=== PATIENT | male | born 1970 | race Caucasian/White ===

== ENCOUNTER 2022-12-21 15:55 | Emergency (ER) | payer OTHER ==
[2022-12-21 16:00] VITALS: BP 140/98; PULSE 106; RESP 20; TEMP 98; BMI 36.9
[2022-12-21] MEDS ORDERED: DIPHTH,PERTUSS(ACELL),TET 0.5 ML DISP.SYRIN IM ONE ×2 (19:29→19:40)
== END 2022-12-21 20:17 | disposition home or self-care (01) ==
LOC: JERFT 15:55
PROC: 0HQ1XZZ Repair Face Skin, External Approach (ICD-10-PCS; principal; 2022-12-21)
PROC: 3E0234Z Introduction of Serum, Toxoid and Vaccine into Muscle, Percutaneous Approach (ICD-10-PCS; 2022-12-21)
DX: S01.81XA Laceration without foreign body of other part of head, initial encounter (principal); W22.8XXA Striking against or struck by other objects, initial encounter; Y93.01 Activity, walking, marching and hiking
CPT/HCPCS: 90715; 99283-25

== ENCOUNTER 2022-12-25 13:02 | Emergency (ER) | payer OTHER ==
[2022-12-25 13:26] VITALS: BP 145/85; PULSE 97; RESP 16; TEMP 98.2; BMI 36.9
== END 2022-12-25 15:27 | disposition home or self-care (01) ==
LOC: JERFT 13:02
DX: Z48.02 Encounter for removal of sutures (principal)
CPT/HCPCS: 99281-25